=== PATIENT | male | born 1965 | race Two or more races ===

== ENCOUNTER 2021-07-17 12:15 | Inpatient (IN) | payer OTHER ==
[~2021-07-17] VITALS: Ht 165.1 cm; Wt 95.3 kg
[2021-07-17] MEDS ORDERED: PLAVIX75 MG PO (14:39)
[2021-07-17] MEDS ORDERED: SINGULAIR10 MG PO (14:39)
[2021-07-17] MEDS ORDERED: ADULT LOW DOSE81 M1 PO (14:39)
[2021-07-17] MEDS ORDERED: TAMS0.4C PO (14:39)
[2021-07-17] MEDS ORDERED: NORVASC5 MG PO (14:40)
[2021-07-17] MEDS ORDERED: CARDIZEM120 MG PO (14:40)
[2021-07-17] MEDS ORDERED: COZAAR50 MG PO (14:40)
[2021-07-17] MEDS ORDERED: CLONAZEPAM0.5 MG PO (14:41)
[2021-07-21] MEDS ORDERED: PROAIR HFA8.5 GM (14:29)
[2021-07-21] MEDS ORDERED: TRELEGY ELLIPT1 EACH (14:29)
[2021-07-21] MEDS ORDERED: DILTIAZEM HCL90 MG (14:29)
[2021-07-21] MEDS ORDERED: FLONASE16 GM (14:30)
[2021-07-21] MEDS ORDERED: QUETIAPINE FUM100 MG (14:30)
[2021-07-21] MEDS ORDERED: ESCITALOPRAM OX20 MG (14:30)
[2021-07-21] MEDS ORDERED: GAS-X ULTRA ST180 MG (14:30)
[2021-07-21] MEDS ORDERED: CLOTRIMAZOLE10 MG (14:30)
[2021-07-21] MEDS ORDERED: OPTIVE EYE DROP15 ML (14:31)
[2021-07-21] MEDS ORDERED: LANSOPRAZOLE30 MG (14:31)
[2021-07-21] MEDS ORDERED: NABUMETONE750 MG (14:31)
[2021-07-21] MEDS ORDERED: ACID CONTROLLER20 MG (14:31)
[2021-07-21] MEDS ORDERED: FEXOFENADINE HC60 MG (14:31)
== END 2021-07-24 21:12 | disposition home or self-care (01) | DRG 330 ==
LOC: O/R 07-21 07:57 → SURH 07-21 07:57 → SURG 07-21 17:26 → SURH 07-21 17:51
PROVIDERS: ADMIT Colon & Rectal Surgery; ATTEND Colon & Rectal Surgery
PROC: 0DTN4ZZ Resection of Sigmoid Colon, Percutaneous Endoscopic Approach (ICD-10-PCS; 2021-07-21)
PROC: 0TQB4ZZ Repair Bladder, Percutaneous Endoscopic Approach (ICD-10-PCS; 2021-07-21)
PROC: 3E0F7SF Introduction of Other Gas into Respiratory Tract, Via Natural or Artificial Opening (ICD-10-PCS; 2021-07-21)
PROC: 0DTP4ZZ Resection of Rectum, Percutaneous Endoscopic Approach (ICD-10-PCS; principal; 2021-07-21 13:45)
DX: K57.40 Diverticulitis of both small and large intestine with perforation and abscess without bleeding (principal); K92.1 Melena; K29.00 Acute gastritis without bleeding; K29.80 Duodenitis without bleeding; K21.9 Gastro-esophageal reflux disease without esophagitis; K44.9 Diaphragmatic hernia without obstruction or gangrene